=== PATIENT | female | born 1950 | race Caucasian/White ===

== ENCOUNTER 2018-03-26 15:12 | Inpatient (IN) | payer MEDICARE, MEDICAID ==
[~2018-03-26] VITALS: Ht 165.1 cm; Wt 72.6 kg
[2018-03-26] MEDS ORDERED: ZYRTEC10 MG PO (15:15)
[2018-03-26] MEDS ORDERED: CELEXA20 MG PO (15:15)
[2018-03-26] MEDS ORDERED: VITAMIN B-121000 MCG PO (15:15)
[2018-03-26] MEDS ORDERED: ACETAMINOPHEN325 MG PO (15:15)
[2018-03-26] MEDS ORDERED: TOPROL XL100 MG PO (15:16)
[2018-03-26] MEDS ORDERED: FERROUS SULFAT140 MG PO (15:16)
[2018-03-26] MEDS ORDERED: OMEPRAZOLE40 MG PO (15:17)
[2018-03-26] MEDS ORDERED: ZANTAC300 MG PO (15:17)
[2018-03-26] MEDS ORDERED: OLMESARTAN-HCTZ PO (15:17)
[2018-03-26] MEDS ORDERED: CARAFATE1 G/10 ML PO (15:18)
[2018-03-26] MEDS ORDERED: TYLENOL PM1 TAB PO (15:18)
--- NOTE | 2018-03-26 17:00 | NUR ---
LEVAQUIN INFUSION COMPLETED AT 1700 100ML INFUSED
--- NOTE | 2018-03-26 18:08 | NUR ---
PT GIVEN NEW GOWN AND CHUX PAD DUE TO INCONTINENCE WITH DIARRHEA. WAS DRINKING WATER AND IT WENT STRAIGHT THROUGHT HER
--- NOTE | 2018-03-26 18:24 | NUR ---
METRONIDAZOLE INFUSION COMPLETED AT 1824, 100MLS INFUSED.
[2018-03-26 19:00] VITALS: BP 131/65
--- NOTE | 2018-03-26 19:00 | NUR ---
BEDSIDE REPORT GIVEN. PT DENIES COMPLAINTS. PT TEARFUL DUE TO HAVING TO KENNEL HER DOGS FOR THE FIRST TIME AND STATES SHE HAS NEVER BEEN AWAY FROM THEM.
[2018-03-26 20:00] VITALS: BP 152/75
--- NOTE | 2018-03-26 20:00 | NUR ---
PT DENIES COMPLAINTS AT THIS TIME LYING IN STRECHER WATCHING TV.
--- NOTE | 2018-03-26 20:50 | NUR ---
RECEIVED PT VIA W/C FROM ER WITH C/O DIARRHEA X 3 WEEKS. STATES ITS WATERY YELLOW. DENIES ABD PAIN. ALERT AND ORIENTED X4. AMBULATORY. RESP EVEN AND NONLABORED. BBS CTA. NO EDEMA NOTED. NS @ 125 ML/HR INFUSING IN LT AC WITHOUT DIFF. NO ACUTE DISTRESS. SR ELEVATED X2. CL IN REACH.
[2018-03-26 23:28] VITALS: BP 133/65; BMI 26.6
[2018-03-27 00:35] VITALS: BP 137/61
--- NOTE | 2018-03-27 00:41 | NUR ---
C/O H/A. NOTIFIED DR. ARSHAD IN ER. NEW ORDER NOTED FOR TYLENOL. MEDICATED ORDERED.
[2018-03-27 04:59] VITALS: BP 131/61
[2018-03-27 07:08] LABS: BASOPHILS 0.2 % (0-2); EOSINOPHILS 1.5 % (0-7); HEMOGLOBIN 12.3 g/dL (12-16); IMMATURE GRANULOCYTES 0.2 % (0-5); LYMPHOCYTES 17.5 % (15-50); MCH 33.2 pg (26.0-34.0); MCHC 33.2 g/dL (31.0-37.0); MEAN PLATELET VOLUME 10.6 fL (7.4-10.4); MONOCYTES 9.7 % (2-11); NEUTROPHILS 70.9 % (40-80); PLATELET COUNT 261 10x3/uL (130-400); RDW 11.9 % (11.5-14.5); WBC 5.3 10x3/uL (4.8-10.8)
[2018-03-27 07:37] LABS: ALBUMIN 2.8 g/dL (3.4-5.0); ALKALINE PHOSPHATASE 52 U/L (46-116); ALT (SGPT) 43 U/L (10-68); BILIRUBIN - TOTAL 0.34 mg/dL (0.2-1.3); CALC OSMOLALITY 276 mosm/kg (275-300); CALCIUM 8.2 mg/dL (8.5-10.1); CARBON DIOXIDE 20.5 mmol/L (21.0-32.0); CHLORIDE - SERUM 106 mmol/L (98-107); CREATININE - SERUM 0.8 mg/dL (0.6-1.3); GLUCOSE 124 mg/dL (74-106); MAGNESIUM - SERUM 1.9 mg/dL (1.8-2.4); POTASSIUM - SERUM 3.7 mmol/L (3.5-5.1); SODIUM 139 mmol/L (136-145); UREA NITROGEN 8 mg/dL (7-18); eGFR NON AFRICAN AMERICAN 75 mL/min (90-120)
--- NOTE | 2018-03-27 08:10 | NUR ---
PT LYING IN BED, TEARFUL THIS AM. RESP EVEN AND UNLABORED. ASSESSED TEARFULLNES. SHE REPORTS ANXIETY REGARDING RECENT ILLNESS AND BEING WITHOUT FAMILY SUPPORT, FAMILY RESIDES AWAY FROM HER. PROVIDED SUPPORT AND REASSURANCE, PT BEGAN TO CALM DOWN. SHE REPORTS TAKING CELEXA DAILY FOR DEPRESSION AND ANXIETY. IV TO LEFT AC WITH NS @ 125ML/HR INFUSING VIA PUMP. SITE WITHOUT REDNESS OR EDEMA. DENIES PAIN AT THIS TIME. EDUCATED REGARDING NEED FOR STOOL SPECIMEN, PT REPORTS UNDERSTANDING, BUT DENIES STOOL TODAY THUS FAR. WILL CONTINUE TO MONITOR. CL WITHIN REACH. ENCOURAGED TO CALL WITH NEEDS. CONTINUE POC
[2018-03-27 09:00] VITALS: BP 154/73
[2018-03-27 12:00] VITALS: BP 159/86
--- NOTE | 2018-03-27 20:00 | NUR ---
LYING IN BED. ALERT AND ORIENTED X4. RESP EVEN AND NONLABORED. DENIES PAIN. ABD DISTENDED. BS HYPERACTIVE X4 QUADS. STATES SHE HAD DIARRHEA TODAY. NS @ 125 ML/HR INFUSING IN LT AC WITHOUT DIFF. NO EDEMA NOTED. B/P ELEVATED. AMBULATORY. NO DISTRESS. SR ELEVATED X2. CL IN REACH.
[2018-03-27 20:47] VITALS: BP 167/72
[2018-03-28 01:15] VITALS: BP 167/79
[2018-03-28 07:56] LABS: BASOPHILS 0.3 % (0-2); EOSINOPHILS 2.1 % (0-7); HEMATOCRIT 36.6 % (36.0-48.0); HEMOGLOBIN 12.4 g/dL (12-16); IMMATURE GRANULOCYTES 0.2 % (0-5); LYMPHOCYTES 12.7 % (15-50); MCH 33.4 pg (26.0-34.0); MCHC 33.9 g/dL (31.0-37.0); MCV 98.7 fL (80.0-100.0); MEAN PLATELET VOLUME 10.2 fL (7.4-10.4); MONOCYTES 7.3 % (2-11); NEUTROPHILS 77.4 % (40-80); PLATELET COUNT 261 10x3/uL (130-400); RBC 3.71 10x6/uL (4.00-5.40); RDW 11.7 % (11.5-14.5); WBC 6.5 10x3/uL (4.8-10.8)
--- NOTE | 2018-03-28 08:15 | NUR ---
PT RESTING IN BED WITH EYES CLOSED. RESPIRATIONS ARE EVEN AND UNLABORED. PT IS EASILY AROUSED WITH VERBAL STIMULATION. PT REPORTS FREQUENT BM AND DENIES PRESENCE OF N/V A THIS TIME.BED IS IN LOWEST POSITION. CALL LIGHT AND BEDSIDE TABLE ARE WITHIN REACH. PT DENIES FURTHER NEEDS AT THIS TIME. WILL CONT TO MONITOR.
[2018-03-28 08:35] LABS: ALBUMIN 2.8 g/dL (3.4-5.0); ALKALINE PHOSPHATASE 56 U/L (46-116); ALT (SGPT) 45 U/L (10-68); BILIRUBIN - TOTAL 0.38 mg/dL (0.2-1.3); CALC OSMOLALITY 278 mosm/kg (275-300); CALCIUM 8.5 mg/dL (8.5-10.1); CARBON DIOXIDE 21.6 mmol/L (21.0-32.0); CHLORIDE - SERUM 109 mmol/L (98-107); CREATININE - SERUM 0.7 mg/dL (0.6-1.3); GLUCOSE 118 mg/dL (74-106); MAGNESIUM - SERUM 1.8 mg/dL (1.8-2.4); POTASSIUM - SERUM 3.4 mmol/L (3.5-5.1); PROTEIN - SERUM 6.1 g/dL (6.4-8.2); SODIUM 141 mmol/L (136-145); eGFR NON AFRICAN AMERICAN 88 mL/min (90-120)
[2018-03-28 08:36] LABS: UREA NITROGEN 3 mg/dL (7-18)
[2018-03-28 09:14] VITALS: BP 145/70
[2018-03-28 12:00] VITALS: BP 168/68
[2018-03-28 14:55] VITALS: Ht 165.1 cm; Wt 72.6 kg
--- NOTE | 2018-03-28 14:56 | NUR ---
PT RESTING IN BED WITH EYES CLOSED. RESPIRATIONS ARE EVEN AND UNLABORED. PT IS EASILY AROUSED WITH VERBAL STIMULATION. PT DENIES FURTHER NEEDS AT THIS TIME. BED IS IN LOWEST POSITION. CALL LIGHT AND BEDSIDE TABLE ARE WITHIN REACH. WILL CONT TO MONITOR.
--- NOTE | 2018-03-28 19:35 | NUR ---
easily arouses to voice alert and oriented. bed low srx2 and call light in reach...iv no edema to left ac ns at 125 lcta with bowel sounds x4 and pedal pulses intact no edema noted pt denies needs at this time
[2018-03-28 21:52] VITALS: BP 179/84
--- NOTE | 2018-03-29 02:35 | NUR ---
RESTING ON LEFT SIDE APPEARS TO TURN SELF WELL AND FREQUENTLY...SRX2 BED LOW AND CALL LIGHT IS IN REACH
[2018-03-29 04:50] VITALS: BP 151/80
--- NOTE | 2018-03-29 05:17 | NUR ---
RESTING QUITELY NO APPARENT DISTRESS CALL PERLA GOMEZ REACH IV INFUSING WITHOUT DIFFICULTY
[2018-03-29 06:14] LABS: BASOPHILS 0.1 % (0-2); EOSINOPHILS 2.3 % (0-7); HEMATOCRIT 35.7 % (36.0-48.0); HEMOGLOBIN 12.1 g/dL (12-16); IMMATURE GRANULOCYTES 0.3 % (0-5); LYMPHOCYTES 10.1 % (15-50); MCH 33.2 pg (26.0-34.0); MCHC 33.9 g/dL (31.0-37.0); MCV 98.1 fL (80.0-100.0); MEAN PLATELET VOLUME 10.3 fL (7.4-10.4); MONOCYTES 9.3 % (2-11); NEUTROPHILS 77.9 % (40-80); PLATELET COUNT 260 10x3/uL (130-400); RBC 3.64 10x6/uL (4.00-5.40); WBC 7.8 10x3/uL (4.8-10.8)
[2018-03-29 06:38] LABS: ALBUMIN 2.4 g/dL (3.4-5.0); ALKALINE PHOSPHATASE 53 U/L (46-116); ALT (SGPT) 33 U/L (10-68); BILIRUBIN - TOTAL 0.28 mg/dL (0.2-1.3); CALC OSMOLALITY 278 mosm/kg (275-300); CALCIUM 8.1 mg/dL (8.5-10.1); CARBON DIOXIDE 19.7 mmol/L (21.0-32.0); CHLORIDE - SERUM 111 mmol/L (98-107); CREATININE - SERUM 0.8 mg/dL (0.6-1.3); GLUCOSE 116 mg/dL (74-106); MAGNESIUM - SERUM 1.5 mg/dL (1.8-2.4); POTASSIUM - SERUM 3.8 mmol/L (3.5-5.1); PROTEIN - SERUM 5.7 g/dL (6.4-8.2); SODIUM 141 mmol/L (136-145); UREA NITROGEN 5 mg/dL (7-18); eGFR NON AFRICAN AMERICAN 75 mL/min (90-120)
--- NOTE | 2018-03-29 07:32 | NUR ---
PT RESTING IN BED WITH EYES CLOSED. RESPIRATIONS ARE EVEN AND UNLABORED. PT IS EASILY AROUSED WITH VERBAL STIMULATION. PT DENIES PAIN AND N/V. PT REPORTS MULTIPLE SMALL LOOSE BMS THROUGH THE NIGHT. BED IS IN LOWEST POSTIION. CALL LIGHT AND BEDSIDE TABLE ARE WITHIN REACH. PT DENIES FURTHER NEEDS.
[2018-03-29 13:35] VITALS: BP 159/71
[2018-03-29 15:50] VITALS: BP 160/69
--- NOTE | 2018-03-29 16:25 | MORECARE ---
CASE MANAGEMENT DISCHARGE SUMMARY PATIENT: BORA ARSHAD UNIT: [id number] ADM DATE: 03/26/18 AGE: 68 : 50 SEX: F ROOM/BED: D.2239 AUTHOR: LEXIS CARTER PHYSICIAN: REFERRING PHYSICIAN: CAESAR PURI MD DATE OF SERVICE: 03/29/18 Discharge Plan Patient Name: BORA ARSHAD Facility: [facility]:[place] : 1950 Planned Disposition: Home Anticipated Discharge Date: 03/30/18 Discharge Date: Expected LOS: 4 Initial Reviewer: [email or web address] Initial Review Date: 03/29/2018 Generated: 03/29/18 5:25 pm Comments DCP- Discharge Planning Updated by [email or web address]: Adriana Rucker on 03/29/18 3:[address] Patient Name: BORA ARSHAD Admission Status: ER Accout number: [id number] Admission Date: 03-26-2018 : 1950 Admission Diagnosis: Attending: CAESAR PURI Current LOS: 3 Anticipated DC Date: 03-30-2018 Planned Disposition: Home Primary Insurance: [facility] MEDICARE SOLUTIONS Discharge Planning Comments: CM MET WITH PATIENT REGARDING D/C NEEDS AND PLANS. PATIENT STATED SHE LIVES ALONE AND WILL TAKE A CAB BACK TO [facility] TO GET HER CAR AND DRIVE HOME. PATIENT WAS TRANSFERED FROM [facility] TO HERE. PATIENT STATED THERE ARE ABOUT 3 STEPS TO ENTER HER HOME AND NO STAIRS ONCE INSIDE. PATIENT STATED SHE IS INDEPENDENT WITH HER CARE AND HAS A GLUCOMETER AT HOME. PATIENT STATED SHE CHECKS DAILY. PATIENTS PCP IS DR. WHITE AT [facility]. PATIENT USES [facility] [address]. PATIENT REFUSED HOME HEALTH WHEN OFFERED. IMM SERVED. PCP [facility] ON [address] MAMTA PRUITT (DAUGHTER) [phone] Trucksmith: Adriana Rucker DCPIA - Discharge Planning Initial Assessment Updated by [id number]: Adriana Rucker on 03/29/18 4:20 pm * Is the patient Alert and Oriented? Yes * How many steps to enter\exit or inside your home? * PCP DR. WHITE * Pharmacy [facility] [address] * Preadmission Environment Other * Other Environment HOSPITAL * Facility Name [facility] * ADLs Independent * Equipment Glucometer * List name and contact numbers for known caregivers / representatives who currently or will assist patient after discharge: MAMTA PRUITT (DAUGHTER) [phone] * Verbal permission to speak to the caregivers and representatives has been obtained from the patient. Yes * Community resources currently utilized None * Additional services required to return to the preadmission environment? Yes * Can the patient safely return to the preadmission environment? Yes * Has this patient been hospitalized within the prior 30 days at any hospital? Yes Coverage Notice Reviewer: [id number] Inderjit Rucker Notice Issued Date-Time: 03/29/2018 16:15 Notice Type: IM Discharge Notice Notice Delivered To: Patient Relationship to Patient: Process Maintenance Technician Name: Delivery Method: HAND - Hand Delivered Dorothy Days: Prior Verbal Notification: Recipient Understood Notice: Yes Recipient Signature: Yes Med Rec Note Co-signed by Attending: Coverage Notice Comment: Patient Name: BORA ARSHAD Page 43238 at 1625 All edits/amendments must be made on the electronic document DICTATION DATE: 03/29/185 CHILD WELFARE CONSULTANT: HARVEY 03/29/18 1625 RPT#: [id number] DC DATE: STATUS: ADM IN [facility] [address] [place] [address] END OF REPORT
--- NOTE | 2018-03-29 19:38 | NUR ---
AWAKE TURNS SELF SKIN WARM AND DRY REPORTS NO LOOSE STOOL TODAY..LCTA REPORTS BM X2 BOWEL SOUNDS NOT ASERTAINED. BED LOW AND CALL LIGHT IN REACH SRX2
[2018-03-29 21:50] VITALS: BP 150/66
--- NOTE | 2018-03-30 02:59 | NUR ---
RESTING WITH EYES CLOSED BED LOW SRX2 CALL LIGHT IN REACH
[2018-03-30 05:05] LABS: BASOPHILS 0.2 % (0-2); EOSINOPHILS 2.4 % (0-7); HEMATOCRIT 35.9 % (36.0-48.0); HEMOGLOBIN 12.3 g/dL (12-16); IMMATURE GRANULOCYTES 0.2 % (0-5); LYMPHOCYTES 11.2 % (15-50); MCH 33.2 pg (26.0-34.0); MCHC 34.3 g/dL (31.0-37.0); MEAN PLATELET VOLUME 10.2 fL (7.4-10.4); MONOCYTES 7.9 % (2-11); NEUTROPHILS 78.1 % (40-80); PLATELET COUNT 268 10x3/uL (130-400); WBC 8.9 10x3/uL (4.8-10.8)
--- NOTE | 2018-03-30 05:15 | NUR ---
FLUID LEAKING AT iv SITE DCed CATHETER INTACT
[2018-03-30 05:26] VITALS: BP 169/82
[2018-03-30 05:27] LABS: ALBUMIN 2.3 g/dL (3.4-5.0); ALKALINE PHOSPHATASE 50 U/L (46-116); ALT (SGPT) 35 U/L (10-68); BILIRUBIN - TOTAL 0.27 mg/dL (0.2-1.3); CALC OSMOLALITY 276 mosm/kg (275-300); CALCIUM 7.7 mg/dL (8.5-10.1); CARBON DIOXIDE 20.1 mmol/L (21.0-32.0); CHLORIDE - SERUM 110 mmol/L (98-107); CREATININE - SERUM 0.8 mg/dL (0.6-1.3); GLUCOSE 108 mg/dL (74-106); MAGNESIUM - SERUM 1.7 mg/dL (1.8-2.4); POTASSIUM - SERUM 3.6 mmol/L (3.5-5.1); PROTEIN - SERUM 5.5 g/dL (6.4-8.2); SODIUM 140 mmol/L (136-145); UREA NITROGEN 5 mg/dL (7-18); eGFR NON AFRICAN AMERICAN 75 mL/min (90-120)
[2018-03-30 08:49] VITALS: BP 179/77
--- NOTE | 2018-03-30 09:04 | NUR ---
PT RESTING IN BED.. CO OF NOT HAVING MUCH APPETITE. BM THIS AM, "PASTE CONSISTENCY". BROUGHT ICE WATER TO PT. NO S/S OF ACUTE DISTRESS. CL IN PLACE.
[2018-03-30 12:56] VITALS: BP 178/87
--- NOTE | 2018-03-30 13:49 | NUR ---
LATE ENTRY 1215: DC INSTRUCTIONS AND EDUCATION DONE WITH PT. IV DC WITH TIP INTACT. NO S/S OF ACUTE DISTRESS. EATING LUNCH. VOLUNTEER TRANS PT OUT VIA WC.
--- NOTE | 2018-03-30 13:57 | NUR ---
NUTRITION F/U DIABETIC DIET WITH ~50% INTAKE RECENT MEALS. WILL CONTINUE TO PROVIDE DIET, MONITOR INTAKE. RD FOLLOWING
[2018-03-30 16:48] VITALS: BP 152/81
--- NOTE | 2018-03-30 19:30 | NUR ---
AWAKE AND DENIES ANY ISSUES STATS STOOL IS SLTLY LOOSE LCTA WITH BOWEL SOUNDS X4 SKIN WARM AND DRY...NO IV ACCESS AT THIS TIME
--- NOTE | 2018-03-30 19:41 | NUR ---
SPOKE WITH PT TODAY WHO STATED DR. VASQUEZ SAID SHE DID NOT NEED AN IV. PT EATING AND DRINKING WELL. NO S/S OF ACUTE DISTRESS. NO N/V. CL IN PLACE.
--- NOTE | 2018-03-30 19:43 | NUR ---
PT RESTING IN BED. NO S/S OF ACUTE DISTRESS. CL IN PLACE.
[2018-03-30 21:23] VITALS: BP 147/52
--- NOTE | 2018-03-31 00:31 | NUR ---
AT REST WITH EYES CLOSED SRX1 AND BED LOW CALL LIGHT IS IN REACH
[2018-03-31 00:46] VITALS: BP 138/50
--- NOTE | 2018-03-31 04:30 | NUR ---
RESTING QUITELY IN BED RESP UNLABORED NO APPARENT DISTRESS CALL LIGHT IN REACH
[2018-03-31 04:45] VITALS: BP 155/88
[2018-03-31 06:23] LABS: BASOPHILS 0.2 % (0-2); EOSINOPHILS 1.7 % (0-7); IMMATURE GRANULOCYTES 0.2 % (0-5); LYMPHOCYTES 13.1 % (15-50); MCH 32.9 pg (26.0-34.0); MCHC 34.3 g/dL (31.0-37.0); MCV 95.9 fL (80.0-100.0); MEAN PLATELET VOLUME 10.6 fL (7.4-10.4); MONOCYTES 7.2 % (2-11); NEUTROPHILS 77.6 % (40-80); PLATELET COUNT 287 10x3/uL (130-400); RBC 3.65 10x6/uL (4.00-5.40); WBC 8.9 10x3/uL (4.8-10.8)
[2018-03-31 06:44] LABS: CALC OSMOLALITY 276 mosm/kg (275-300); CALCIUM 8.3 mg/dL (8.5-10.1); CARBON DIOXIDE 22.9 mmol/L (21.0-32.0); CHLORIDE - SERUM 107 mmol/L (98-107); CREATININE - SERUM 0.8 mg/dL (0.6-1.3); GLUCOSE 111 mg/dL (74-106); POTASSIUM - SERUM 3.5 mmol/L (3.5-5.1); SODIUM 139 mmol/L (136-145); UREA NITROGEN 6 mg/dL (7-18); eGFR NON AFRICAN AMERICAN 75 mL/min (90-120)
--- NOTE | 2018-03-31 08:18 | NUR ---
PT ALERT X 4. BREATH SOUNDS CLEAR BILAT. NO IV ACCESS AT THIS TIME. ABDOMEN ROUNDED. BED LOW, CALL LIGHT IN REACH, NO OTHER NEEDS AT THIS TIME.
[2018-03-31 08:47] VITALS: BP 173/74
[2018-03-31] MEDS ORDERED: LEVOFLOXACIN500 MG PO (09:45)
--- NOTE | 2018-03-31 11:15 | MORECARE ---
CASE MANAGEMENT DISCHARGE SUMMARY PATIENT: BORA ARSHAD UNIT: [id number] ADM DATE: 03/26/18 AGE: 68 : 50 SEX: F ROOM/BED: D.2239 AUTHOR: EMMA,DOC PHYSICIAN: REFERRING PHYSICIAN: CAESAR PURI MD DATE OF SERVICE: 03/31/18 Discharge Plan Patient Name: BORA ARSHAD Facility: [facility]:[place] : 1950 Planned Disposition: Home Anticipated Discharge Date: 03/30/18 Discharge Date: Expected LOS: 4 Initial Reviewer: [id number] Initial Review Date: 03/29/2018 Generated: 03/31/18 12:15 pm Comments DCP- Discharge Planning Updated by [id number]: Lynda Carlota on 03/31/18 10:[address] Received orders for discharge, she agrees with plan. States she has someone to pick her up and take her to her car at [facility]. States she feels safe to drive and has not had any medicine to impair her judgment. Declines need for HHS or any discharge needs. DCP- Discharge Planning Updated by [id number]: Adriana Rucker on 03/29/18 3:[address] Patient Name: BORA ARSHAD Admission Status: ER Accout number: [id number] Admission Date: 03-26-2018 : 1950 Admission Diagnosis: Attending: CAESAR PURI Current LOS: 3 Anticipated DC Date: 03-30-2018 Planned Disposition: Home Primary Insurance: [facility] MEDICARE SOLUTIONS Discharge Planning Comments: CM MET WITH PATIENT REGARDING D/C NEEDS AND PLANS. PATIENT STATED SHE LIVES ALONE AND WILL TAKE A CAB BACK TO [facility] TO GET HER CAR AND DRIVE HOME. PATIENT WAS TRANSFERED FROM [facility] TO HERE. PATIENT STATED THERE ARE ABOUT 3 STEPS TO ENTER HER HOME AND NO STAIRS ONCE INSIDE. PATIENT STATED SHE IS INDEPENDENT WITH HER CARE AND HAS A GLUCOMETER AT HOME. PATIENT STATED SHE CHECKS DAILY. PATIENTS PCP IS DR. WHITE AT [facility]. PATIENT USES [facility] ON [address]. PATIENT REFUSED HOME HEALTH WHEN OFFERED. IMM SERVED. [facility] [address] PRU[address] (DAUGHTER) [phone] Correctional Medicine Physician: Adriana Alka DCPIA - Discharge Planning Initial Assessment Updated by [id number]: Adriana Rucker on 03/29/18 4:20 pm * Is the patient Alert and Oriented? Yes * How many steps to enter\exit or inside your home? * PCP DR. WHITE * Pharmacy [facility] [address] * Preadmission Environment Other * Other Environment HOSPITAL * Facility Name [facility] * ADLs Independent * Equipment Glucometer * List name and contact numbers for known caregivers / representatives who currently or will assist patient after discharge: MAMTA PRUITT (DAUGHTER) [phone] * Verbal permission to speak to the caregivers and representatives has been obtained from the patient. Yes * Community resources currently utilized None * Additional services required to return to the preadmission environment? Yes * Can the patient safely return to the preadmission environment? Yes * Has this patient been hospitalized within the prior 30 days at any hospital? Yes Coverage Notice Reviewer: [id number] - Adriana Rucker Notice Issued Date-Time: 03/29/2018 16:15 Notice Type: IM Discharge Notice Notice Delivered To: Patient Relationship to Patient: Hide Cleaner Name: Delivery Method: HAND - Hand Delivered Dorothy Days: Prior Verbal Notification: Recipient Understood Notice: Yes Recipient Signature: Yes Med Rec Note Co-signed by Attending: Coverage Notice Comment: Last DP export: 03/29/18 3:25 p Patient Name: BORA ARSHAD Page 22854 at 1115 All edits/amendments must be made on the electronic document DICTATION DATE: 03/31/18 1115 PIPE STRIPPER: HARVEY 03/31/18 1115 RPT#: [id number] DC DATE: STATUS: ADM IN [facility] [address] [place] [address] END OF REPORT
--- NOTE | 2018-03-31 12:31 | NUR ---
DISCHARGE PAPERWORK SIGNED, ALL QUESTIONS ANSWERED. ESCORTED OUT BY WHEELCHAIR.
--- NOTE | 2018-03-31 13:28 | MORECARE ---
CASE MANAGEMENT DISCHARGE SUMMARY PATIENT: BORA ARSHAD UNIT: [id number] ADM DATE: 03/26/18 AGE: 68 : 50 SEX: F ROOM/BED: D.2239 AUTHOR: EMMA,DOC PHYSICIAN: REFERRING PHYSICIAN: CAESAR PURI MD DATE OF SERVICE: 03/31/18 Discharge Plan Patient Name: BORA ARSHAD Facility: [facility]:[place] : 1950 Planned Disposition: Home Anticipated Discharge Date: 03/30/18 Discharge Date: 03/31/2018 Expected LOS: 4 Initial Reviewer: [email or web address] Initial Review Date: 03/29/2018 Generated: 03/31/18 2:28 pm Comments DCP- Discharge Planning Updated by [id number]: Lynda Carlota on 03/31/18 10:[address] Received orders for discharge, she agrees with plan. States she has someone to pick her up and take her to her car at [facility]. States she feels safe to drive and has not had any medicine to impair her judgment. Declines need for HHS or any discharge needs. DCP- Discharge Planning Updated by [id number]: Adriana Rucker on 03/29/18 3:[address] Patient Name: BORA ARSHAD Admission Status: ER Accout number: [id number] Admission Date: 03-26-2018 : 1950 Admission Diagnosis: Attending: CAESAR PURI Current LOS: 3 Anticipated DC Date: 03-30-2018 Planned Disposition: Home Primary Insurance: [employer] MEDICARE SOLUTIONS Discharge Planning Comments: CM MET WITH PATIENT REGARDING D/C NEEDS AND PLANS. PATIENT STATED SHE LIVES ALONE AND WILL TAKE A CAB BACK TO [facility] TO GET HER CAR AND DRIVE HOME. PATIENT WAS TRANSFERED FROM [facility] TO HERE. PATIENT STATED THERE ARE ABOUT 3 STEPS TO ENTER HER HOME AND NO STAIRS ONCE INSIDE. PATIENT STATED SHE IS INDEPENDENT WITH HER CARE AND HAS A GLUCOMETER AT HOME. PATIENT STATED SHE CHECKS DAILY. PATIENTS PCP IS DR. WHITE AT [facility]. PATIENT USES [facility] [address]. PATIENT REFUSED HOME HEALTH WHEN OFFERED. IMM SERVED. [facility] [address] [place]U[address] (DAUGHTER) [phone] Combatant Diver Officer: Adriana Alka DCPIA - Discharge Planning Initial Assessment Updated by [id number]: Adriana Rucker on 03/29/18 4:20 pm * Is the patient Alert and Oriented? Yes * How many steps to enter\exit or inside your home? * PCP DR. WHITE * Pharmacy [facility] [address] * Preadmission Environment Other * Other Environment HOSPITAL * Facility Name [facility] * ADLs Independent * Equipment Glucometer * List name and contact numbers for known caregivers / representatives who currently or will assist patient after discharge: MAMTA PRUITT (DAUGHTER) [phone] * Verbal permission to speak to the caregivers and representatives has been obtained from the patient. Yes * Community resources currently utilized None * Additional services required to return to the preadmission environment? Yes * Can the patient safely return to the preadmission environment? Yes * Has this patient been hospitalized within the prior 30 days at any hospital? Yes Coverage Notice Reviewer: [id number] - Adriana Rucker Notice Issued Date-Time: 03/29/2018 16:15 Notice Type: IM Discharge Notice Notice Delivered To: Patient Relationship to Patient: Advertising Columnist Name: Delivery Method: HAND - Hand Delivered Dorothy Days: Prior Verbal Notification: Recipient Understood Notice: Yes Recipient Signature: Yes Med Rec Note Co-signed by Attending: Coverage Notice Comment: Last DP export: 03/31/18 10:15 a Patient Name: BORA ARSHAD Page 91635 at 1328 All edits/amendments must be made on the electronic document DICTATION DATE: 03/31/18 1327 POLICY CHANGE CLERK: HARVEY 03/31/18 1327 RPT#: [id number] DC DATE:03/31/18 STATUS: DIS IN [facility] [address] [place] [address] END OF REPORT
[2018-03-31 19:11] LABS: OVA + PARASITE EXAM Final report (())
--- NOTE | 2018-04-04 16:55 | MORECARE ---
CASE MANAGEMENT DISCHARGE SUMMARY PATIENT: BORA ARSHAD UNIT: [id number] ADM DATE: 03/26/18 AGE: 68 : 50 SEX: F ROOM/BED: D.2239 AUTHOR: EMMA,DOC PHYSICIAN: REFERRING PHYSICIAN: CAESAR PURI MD DATE OF SERVICE: 04/04/18 Discharge Plan Patient Name: BORA ARSHAD Facility: [facility]:[place] : 1950 Planned Disposition: Home Anticipated Discharge Date: 03/30/18 Discharge Date: 03/31/2018 Expected LOS: 4 Initial Reviewer: [email or web address] Initial Review Date: 03/29/2018 Generated: 04/04/18 5:55 pm DCP- Discharge Planning Updated by [email or web address]: Lynda Carlota on 03/31/18 10:[address] Received orders for discharge, she agrees with plan. States she has someone to pick her up and take her to her car at [facility]. States she feels safe to drive and has not had any medicine to impair her judgment. Declines need for HHS or any discharge needs. DCP- Discharge Planning Updated by [id number]: Adriana Rucker on 03/29/18 3:[address] Patient Name: BORA ARSHAD Admission Status: ER Accout number: [id number] Admission Date: 03-26-2018 : 1950 Admission Diagnosis: Attending: CAESAR PURI Current LOS: 3 Anticipated DC Date: 03-30-2018 Planned Disposition: Home Primary Insurance: [facility] MEDICARE SOLUTIONS Discharge Planning Comments: CM MET WITH PATIENT REGARDING D/C NEEDS AND PLANS. PATIENT STATED SHE LIVES ALONE AND WILL TAKE A CAB BACK TO [facility] TO GET HER CAR AND DRIVE HOME. PATIENT WAS TRANSFERED FROM [facility] TO HERE. PATIENT STATED THERE ARE ABOUT 3 STEPS TO ENTER HER HOME AND NO STAIRS ONCE INSIDE. PATIENT STATED SHE IS INDEPENDENT WITH HER CARE AND HAS A GLUCOMETER AT HOME. PATIENT STATED SHE CHECKS DAILY. PATIENTS PCP IS DR. WHITE AT [facility]. PATIENT USES [email or web address] [address]. PATIENT REFUSED HOME HEALTH WHEN OFFERED. IMM SERVED. PCP [facility] ON [address] MAMTA PRUITT (DAUGHTER) [phone] Business Services Associate: Adriana Rucker DCPIA - Discharge Planning Initial Assessment Updated by [id number]: Adriana Rucker on 03/29/18 4:20 pm * Is the patient Alert and Oriented? Yes * How many steps to enter\exit or inside your home? * PCP DR. WHITE * Pharmacy [facility] [address] * Preadmission Environment Other * Other Environment HOSPITAL * Facility Name [facility] * ADLs Independent * Equipment Glucometer * List name and contact numbers for known caregivers / representatives who currently or will assist patient after discharge: MAMTA PRUITT (DAUGHTER) [phone] * Verbal permission to speak to the caregivers and representatives has been obtained from the patient. Yes * Community resources currently utilized None * Additional services required to return to the preadmission environment? Yes * Can the patient safely return to the preadmission environment? Yes * Has this patient been hospitalized within the prior 30 days at any hospital? Yes Coverage Notice Reviewer: [id number] - Adriana Rucker Notice Issued Date-Time: 03/29/2018 16:15 Notice Type: IM Discharge Notice Notice Delivered To: Patient Relationship to Patient: Language Therapist Name: Delivery Method: HAND - Hand Delivered Dorothy Days: Prior Verbal Notification: Recipient Understood Notice: Yes Recipient Signature: Yes Med Rec Note Co-signed by Attending: Coverage Notice Comment: Last DP export: 03/31/18 12:28 p Patient Name: BORA ARSHAD Page [id number] at 1655 All edits/amendments must be made on the electronic document DICTATION DATE: 04/04/181654 LIFE ENRICHMENT MANAGER: HARVEY 04/04/181654 RPT#: [id number] DC DATE:03/31/18 STATUS: DIS IN [facility] [address] [place] [address] END OF REPORT
== END 2018-03-31 12:37 | disposition home or self-care (01) | DRG 392 ==
LOC: D.ER 15:12 → D.EDHOLD 15:58 → D.MS 15:58 → D.EDHOLD 19:53 → D.MS 03-30 13:57
PROVIDERS: Emergency Medicine; Internal Medicine Nephrology; ADMIT Emergency Medicine
DX: R19.7 Diarrhea, unspecified (principal); E86.0 Dehydration; I10 Essential (primary) hypertension; J44.9 Chronic obstructive pulmonary disease, unspecified

== ENCOUNTER → 2019-01-02 14:10 | Outpatient (CLI) | payer MEDICARE, MEDICAID ==
[2018-03-28 14:55] VITALS: BMI 26.6
[~2019-01-02 14:10] MED LIST: ACETAMINOPHEN325 MG PO; CARAFATE1 G/10 ML PO; CELEXA20 MG PO; FERROUS SULFAT140 MG PO; LEVOFLOXACIN500 MG PO; OLMESARTAN-HCTZ PO; OMEPRAZOLE40 MG PO; TOPROL XL100 MG PO; TYLENOL PM1 TAB PO; VITAMIN B-121000 MCG PO; ZANTAC300 MG PO; ZYRTEC10 MG PO
--- NOTE | 2019-01-10 11:40 | ST ---
PATIENT:BORA ARSHAD MEDICAL RECORD: [id number] SEX: F LOCATION:[facility] ORDER #: ADMISSION DATE: 01/02/19 AGE OF PATIENT: 68 REFERRING PHYSICIAN: INTERPRETING PHYSICIAN: MICHA WILLSON MD DATE OF SERVICE: 01/02/2019 INDICATIONS: Abnormal ECG, preoperative evaluation of chest pain. She was exercised on standard [place] protocol for 6 minutes achieving greater than 85% max target heart rate response with no EKG changes, no dysrhythmias, no anginal symptomatology. OVERALL IMPRESSION: Negative for inducible ischemia at adequate cardiac workload. TRANSINT:[id number] Voice Confirmation ID: [id number] DOCUMENT ID: [id number] MICHA WILLSON MD at 1140 CC: [id number] DICTATION DATE: 01/02/19 1554 JACKSCREW MAN: 01/03/19 0123 DEP CLI 01/02/19 [place] [id number] [place] [address]
== END | disposition home or self-care (01) ==
LOC: D.HCCARDIO 14:10
PROVIDERS: ATTEND Internal Medicine Interventional Cardiology
DX: R07.9 Chest pain, unspecified (principal); R94.31 Abnormal electrocardiogram [ECG] [EKG]